=== PATIENT | female | born 1970 | race Caucasian/White ===

== ENCOUNTER 2016-09-18 21:24 | Emergency (ER) | payer OTHER ==
[~2016-09-18] VITALS: Ht 165.1 cm; Wt 66.0 kg
[~2016-09-18 21:24] MED LIST: ALBU8.5H3 INH; ALPR1TAB6 PO; AMIT100T PO; BUDE10.2 INH; CETI10TA24 PO; CHOL100015 PO; CIPR500T3 PO; CLIN-60 PO; COLE1TAB2 PO; COLE625T2 PO; DIPH1TAB6 PO; FENO145T13 PO; FLUC200T4 PO; FLUO40CA2 PO; GABA100C8 PO; GABA300C10 PO; HYOS0.375 PO; IRBE1TAB37 PO; L-NO1TBD3 PO; L-NO1TBD4 PO; MELO-184 PO; METH750T2 PO; METR500T4 PO; OLME1TAB PO; PRED10TA PO; VALA500T PO; ZONI100C2 PO
[2016-09-18] MEDS ORDERED: METOCLOPRAMIDE 5 MG/ML, 2ML IVPush ONE (21:30)
[2016-09-18] MEDS ORDERED: ONDANSETRON 2MG/ML, 2ML IVPush ONE (21:30)
[2016-09-18] MEDS ORDERED: DIPHENHYDRAMINE 50 MG/ML, 1ML IVPush ONE (21:30)
[2016-09-18] MEDS ORDERED: SODIUM CHLORIDE 0.9% 1,000ML IVBOLUS ONE (21:30)
[2016-09-18] MEDS ORDERED: MORPHINE SULFATE 4 MG/ML, 1ML IVPush PRN (21:30)
[2016-09-18] MEDS ORDERED: ONDANSETRON 2MG/ML, 2ML ONE (21:35)
[2016-09-18] MEDS ORDERED: MORPHINE SULFATE 4 MG/ML, 1ML ONE (21:35)
[2016-09-18] MEDS ORDERED: METOCLOPRAMIDE 5 MG/ML, 2ML ONE (21:35)
[2016-09-18] MEDS ORDERED: DIPHENHYDRAMINE 50 MG/ML, 1ML ONE (21:35)
[2016-09-18 21:56] LABS: ASPARTATE AMINO TRANSFERASE 18 U/L (15-37); BLOOD UREA NITROGEN 16 mg/dL (7-18)
[2016-09-18 22:24] LABS: DAU SCREEN DISCLAIMER
[2016-09-18] MEDS ORDERED: ASPIRIN 325 MG TABLET PO ONE (22:30)
[2016-09-18] MEDS ORDERED: ASPIRIN 325 MG TABLET ONE (23:07)
[2016-09-18] MEDS ORDERED: OMNIPAQUE 350 MG/ML, 100ML BOTTLE ONE (23:45)
[2016-09-19] MEDS ORDERED: DEXAMETHASONE 4 MG/ML, 1ML ONE (00:10)
[2016-09-19 00:19] VITALS: BP 108/84
[2016-09-19] MEDS ORDERED: DEXAMETHASONE 4 MG/ML, 1ML IVPush ONE (00:30)
== END 2016-09-19 01:12 | disposition home or self-care (01) ==
LOC: ED 21:47
DX: G43.909 Migraine, unspecified, not intractable, without status migrainosus (principal); I10 Essential (primary) hypertension; J45.909 Unspecified asthma, uncomplicated; E78.5 Hyperlipidemia, unspecified; M54.2 Cervicalgia; G89.29 Other chronic pain
CPT/HCPCS: 36415; 70450; 70496; 70498; 71010; 80053; 80307; 85025; 93005; J1100; J1200; J2405; J2765; J7030; Q9967; 96361; 96374; 96375

== ENCOUNTER 2016-10-23 23:01 | Inpatient (IN) | payer OTHER ==
[~2016-10-23] VITALS: Ht 165.1 cm; Wt 69.0 kg
[~2016-10-23 23:01] MED LIST changes: +GABA-826 PO; -GABA100C8 PO
[2016-10-23] MEDS ORDERED: TRAM50TA2 PO (23:15)
[2016-10-23] MEDS ORDERED: PROCHLORPERAZINE 5 MG/ML, 2ML ONE (23:43)
[2016-10-23] MEDS ORDERED: DIPHENHYDRAMINE 50 MG/ML, 1ML ONE (23:43)
[2016-10-24] MEDS ORDERED: DIPHENHYDRAMINE 50 MG/ML, 1ML IVPush ONE
[2016-10-24] MEDS ORDERED: SODIUM CHLORIDE 0.9% 1,000ML IVBOLUS ONE
[2016-10-24] MEDS ORDERED: PROCHLORPERAZINE 5 MG/ML, 2ML IVPush ONE
[2016-10-24] MEDS ORDERED: KETOROLAC 30 MG/1 ML IVPush ONE (00:30)
[2016-10-24] MEDS ORDERED: KETOROLAC 30 MG/1 ML ONE (01:03)
[2016-10-24 02:07] VITALS: BP 157/98
[2016-10-24] MEDS: OXYcodone/APAP 5/325MG TABLET PO PRN ×3 (03:05→20:00)
[2016-10-24] MEDS ORDERED: morphine SULFATE 10 MG/ML, 1ML IVPush PRN (03:30)
[2016-10-24] MEDS ORDERED: PROMETHAZINE 25 MG/ML, 1ML IM PRN (03:30)
[2016-10-24] MEDS ORDERED: ACETAMINOPHEN 325 MG TABLET PO PRN (03:30)
[2016-10-24] MEDS ORDERED: LABETALOL 5MG/ML, 20ML IVPush PRN (03:30)
[2016-10-24] MEDS ORDERED: DOCUSATE 100 MG CAPSULE PO PRN (03:30)
[2016-10-24] MEDS: NICOTINE 14MG/24 HR PATCH.TD24 TD SCH (05:48)
[2016-10-24] MEDS: ASPIRIN 325 MG TABLET EC PO SCH (05:48)
[2016-10-24] MEDS: ENOXAPARIN 40 MG/0.4 ML SQ SCH (05:48)
[2016-10-24 07:26] VITALS: BP 115/79
[2016-10-24] MEDS: CETIRIZINE 10 MG TABLET PO SCH (10:09)
[2016-10-24] MEDS: FAMOTIDINE 20 MG TABLET PO SCH ×2 (10:10→21:09)
[2016-10-24] MEDS: COLESTIPOL 1 GM TABLET PO SCH ×2 (10:10→21:08)
[2016-10-24] MEDS: IRBESARTAN 150 MG TABLET PO SCH (10:10)
[2016-10-24] MEDS: FLUOXETINE 20 MG CAPSULE PO SCH (10:10)
[2016-10-24] MEDS: SODIUM CHLORIDE FLUSH 10ML SYR IVF SCH ×2 (10:11→21:08)
[2016-10-24] MEDS: HYDROCHLOROTHIAZIDE 12.5 MG CAPSULE PO SCH (10:11)
[2016-10-24] MEDS ORDERED: METHOCARBAMOL 750 MG TABLET PO ONE (11:00)
[2016-10-24 12:55] VITALS: BP 107/74
[2016-10-24] MEDS: KETOROLAC 30 MG/1 ML IVPush SCH ×3 (14:38→21:37)
[2016-10-24] MEDS: ONDANSETRON 2MG/ML, 2ML IVPush PRN ×2 (14:38→21:08)
[2016-10-24] MEDS: DIPHENHYDRAMINE 50 MG/ML, 1ML IVPush PRN ×2 (14:39→21:07)
[2016-10-24] MEDS: VALPROATE SODIUM 500 MG in SODIUM CHLORIDE 0.9% 100 ML IV SCH ×2 (16:34→21:08)
[2016-10-24 20:04] VITALS: BP 109/76
[2016-10-24] MEDS: FENOFIBRATE 145 MG TABLET PO SCH (21:09)
[2016-10-24] MEDS: METHOCARBAMOL 750 MG TABLET PO PRN (22:33)
[2016-10-25 03:17] VITALS: BP 112/76
[2016-10-25] MEDS: VALPROATE SODIUM 500 MG in SODIUM CHLORIDE 0.9% 100 ML IV SCH ×4 (03:20→21:01)
[2016-10-25] MEDS: KETOROLAC 30 MG/1 ML IVPush SCH ×4 (03:22→21:00)
[2016-10-25] MEDS: ONDANSETRON 2MG/ML, 2ML IVPush PRN ×3 (03:22→21:03)
[2016-10-25] MEDS: DIPHENHYDRAMINE 50 MG/ML, 1ML IVPush PRN ×4 (03:22→21:02)
[2016-10-25 04:47] LABS: BLOOD UREA NITROGEN 30 mg/dL (7-18)
[2016-10-25] MEDS: NICOTINE 14MG/24 HR PATCH.TD24 TD SCH (05:36)
[2016-10-25] MEDS: ASPIRIN 325 MG TABLET EC PO SCH (05:36)
[2016-10-25] MEDS: ENOXAPARIN 40 MG/0.4 ML SQ SCH (05:36)
[2016-10-25 07:05] VITALS: BP 115/79
[2016-10-25] MEDS: SODIUM CHLORIDE FLUSH 10ML SYR IVF SCH ×2 (08:37→21:01)
[2016-10-25] MEDS: COLESTIPOL 1 GM TABLET PO SCH ×2 (08:39→21:01)
[2016-10-25] MEDS: IRBESARTAN 150 MG TABLET PO SCH (08:39)
[2016-10-25] MEDS: HYDROCHLOROTHIAZIDE 12.5 MG CAPSULE PO SCH (08:39)
[2016-10-25] MEDS: FLUOXETINE 20 MG CAPSULE PO SCH (08:40)
[2016-10-25] MEDS: CETIRIZINE 10 MG TABLET PO SCH (08:40)
[2016-10-25] MEDS: FAMOTIDINE 20 MG TABLET PO SCH ×2 (08:40→21:02)
[2016-10-25] MEDS ORDERED: SODIUM CHLORIDE 0.9% 1,000 ML IV SCH (10:30)
[2016-10-25 13:20] VITALS: BP 102/69
[2016-10-25] MEDS ORDERED: PROCHLORPERAZINE 5 MG/ML, 2ML IVPush ONE (14:00)
[2016-10-25] MEDS ORDERED: DIPHENHYDRAMINE 50 MG/ML, 1ML IVPush ONE (14:00)
[2016-10-25 19:06] VITALS: BP 116/81
[2016-10-25] MEDS: OXYcodone/APAP 5/325MG TABLET PO PRN (20:03)
[2016-10-25] MEDS: FENOFIBRATE 145 MG TABLET PO SCH (21:02)
[2016-10-25] MEDS: METHOCARBAMOL 750 MG TABLET PO PRN (22:18)
[2016-10-26 01:29] VITALS: BP 118/79
[2016-10-26] MEDS: VALPROATE SODIUM 500 MG in SODIUM CHLORIDE 0.9% 100 ML IV SCH ×4 (02:46→20:58)
[2016-10-26] MEDS: ONDANSETRON 2MG/ML, 2ML IVPush PRN ×4 (02:47→20:46)
[2016-10-26] MEDS: DIPHENHYDRAMINE 50 MG/ML, 1ML IVPush PRN ×4 (02:48→20:46)
[2016-10-26] MEDS: KETOROLAC 30 MG/1 ML IVPush SCH ×4 (02:48→20:44)
[2016-10-26] MEDS: OXYcodone/APAP 5/325MG TABLET PO PRN ×2 (05:43→22:34)
[2016-10-26] MEDS: ASPIRIN 325 MG TABLET EC PO SCH (05:44)
[2016-10-26] MEDS: NICOTINE 14MG/24 HR PATCH.TD24 TD SCH (05:44)
[2016-10-26] MEDS: ENOXAPARIN 40 MG/0.4 ML SQ SCH (05:44)
[2016-10-26 06:13] LABS: BLOOD UREA NITROGEN 28 mg/dL (7-18)
[2016-10-26 08:33] VITALS: BP 125/90
[2016-10-26] MEDS: SODIUM CHLORIDE FLUSH 10ML SYR IVF SCH ×2 (08:44→20:45)
[2016-10-26] MEDS: CETIRIZINE 10 MG TABLET PO SCH (08:45)
[2016-10-26] MEDS: FLUOXETINE 20 MG CAPSULE PO SCH (08:46)
[2016-10-26] MEDS: HYDROCHLOROTHIAZIDE 12.5 MG CAPSULE PO SCH (08:46)
[2016-10-26] MEDS: FAMOTIDINE 20 MG TABLET PO SCH ×2 (08:46→20:45)
[2016-10-26] MEDS: IRBESARTAN 150 MG TABLET PO SCH (08:47)
[2016-10-26] MEDS: COLESTIPOL 1 GM TABLET PO SCH ×2 (08:47→20:44)
[2016-10-26 13:51] VITALS: BP 116/76
[2016-10-26] MEDS: METHOCARBAMOL 750 MG TABLET PO PRN (14:00)
[2016-10-26 19:28] VITALS: BP 137/85
[2016-10-26] MEDS: FENOFIBRATE 145 MG TABLET PO SCH (20:45)
[2016-10-27] MEDS: VALPROATE SODIUM 500 MG in SODIUM CHLORIDE 0.9% 100 ML IV SCH ×4 (02:40→21:15)
[2016-10-27] MEDS: KETOROLAC 30 MG/1 ML IVPush SCH ×2 (02:40→08:24)
[2016-10-27] MEDS: DIPHENHYDRAMINE 50 MG/ML, 1ML IVPush PRN ×2 (02:40→08:24)
[2016-10-27] MEDS: ONDANSETRON 2MG/ML, 2ML IVPush PRN ×2 (02:41→08:24)
[2016-10-27 02:51] VITALS: BP 138/89
[2016-10-27] MEDS: METHOCARBAMOL 750 MG TABLET PO PRN ×2 (05:58→21:14)
[2016-10-27] MEDS: ASPIRIN 325 MG TABLET EC PO SCH (05:59)
[2016-10-27] MEDS: ENOXAPARIN 40 MG/0.4 ML SQ SCH (05:59)
[2016-10-27] MEDS: NICOTINE 14MG/24 HR PATCH.TD24 TD SCH (06:00)
[2016-10-27 08:01] VITALS: BP 131/87
[2016-10-27] MEDS: HYDROCHLOROTHIAZIDE 12.5 MG CAPSULE PO SCH (08:25)
[2016-10-27] MEDS: COLESTIPOL 1 GM TABLET PO SCH ×2 (08:26→21:00)
[2016-10-27] MEDS: FLUOXETINE 20 MG CAPSULE PO SCH (08:26)
[2016-10-27] MEDS: FAMOTIDINE 20 MG TABLET PO SCH ×2 (08:26→21:14)
[2016-10-27] MEDS: CETIRIZINE 10 MG TABLET PO SCH (08:26)
[2016-10-27] MEDS: IRBESARTAN 150 MG TABLET PO SCH (08:27)
[2016-10-27] MEDS: SODIUM CHLORIDE FLUSH 10ML SYR IVF SCH ×2 (08:28→21:15)
[2016-10-27] MEDS ORDERED: MAGNESIUM CITRATE 300ML ORAL SOL PO ONE (10:30)
[2016-10-27] MEDS: ONDANSETRON 2MG/ML, 2ML IVPush SCH ×2 (11:42→18:19)
[2016-10-27] MEDS: DIHYDROERGOTAMINE 1 MG/ML, 1ML IM SCH ×2 (11:43→18:19)
[2016-10-27 14:56] VITALS: BP 134/89
[2016-10-27] MEDS: FENOFIBRATE 145 MG TABLET PO SCH (21:14)
[2016-10-27 21:38] VITALS: BP 110/80
[2016-10-28 01:17] VITALS: BP 105/75
[2016-10-28] MEDS: OXYcodone/APAP 5/325MG TABLET PO PRN (01:31)
[2016-10-28] MEDS: ONDANSETRON 2MG/ML, 2ML IVPush SCH (02:43)
[2016-10-28] MEDS: DIHYDROERGOTAMINE 1 MG/ML, 1ML IM SCH (02:45)
[2016-10-28] MEDS: VALPROATE SODIUM 500 MG in SODIUM CHLORIDE 0.9% 100 ML IV SCH ×2 (03:37→09:10)
[2016-10-28] MEDS: ENOXAPARIN 40 MG/0.4 ML SQ SCH (05:57)
[2016-10-28] MEDS: ASPIRIN 325 MG TABLET EC PO SCH (05:58)
[2016-10-28] MEDS: NICOTINE 14MG/24 HR PATCH.TD24 TD SCH (05:58)
[2016-10-28] MEDS: CETIRIZINE 10 MG TABLET PO SCH (08:09)
[2016-10-28] MEDS: FAMOTIDINE 20 MG TABLET PO SCH (08:09)
[2016-10-28] MEDS: FLUOXETINE 20 MG CAPSULE PO SCH (08:09)
[2016-10-28] MEDS: HYDROCHLOROTHIAZIDE 12.5 MG CAPSULE PO SCH (08:09)
[2016-10-28] MEDS: IRBESARTAN 150 MG TABLET PO SCH (08:09)
[2016-10-28] MEDS: SODIUM CHLORIDE FLUSH 10ML SYR IVF SCH (08:10)
[2016-10-28] MEDS: COLESTIPOL 1 GM TABLET PO SCH (08:10)
[2016-10-28 08:35] VITALS: BP 109/78
[2016-10-28] MEDS ORDERED: DIVA500T2 PO (11:05)
== END 2016-10-28 13:30 | disposition home or self-care (01) | DRG 103 ==
LOC: ED 23:59 → EDIP 10-24 00:29 → INTOOBSV 10-24 00:29 → 4WST 10-24 02:04 → OBSVTOIN 10-24 14:20 → DCLOUNGE 10-28 13:15
PROVIDERS: ADMIT Internal Medicine; ATTEND Internal Medicine
DX: G43.101 Migraine with aura, not intractable, with status migrainosus (principal); G89.4 Chronic pain syndrome; D72.829 Elevated white blood cell count, unspecified; I10 Essential (primary) hypertension; E78.5 Hyperlipidemia, unspecified; F32.9 Major depressive disorder, single episode, unspecified; F41.9 Anxiety disorder, unspecified; F17.210 Nicotine dependence, cigarettes, uncomplicated; M50.30 Other cervical disc degeneration, unspecified cervical region; Z82.49 Family history of ischemic heart disease and other diseases of the circulatory system; Z71.6 Tobacco abuse counseling; Z79.899 Other long term (current) drug therapy
CPT/HCPCS: 36415; 70450; 71010; 80047; 80048; 80061; 81001; 85025; 85610; 85730; 87086; 93005; 93306; G0378; J1650; J1885; J2405; J0780; J1110; J1200; J7030

== ENCOUNTER 2016-12-29 18:59 | Emergency (ER) | payer OTHER ==
[~2016-12-29] VITALS: Ht 165.1 cm; Wt 66.0 kg
[~2016-12-29 18:59] MED LIST changes: -ALBU8.5H3 INH; +ALBU8.5H8 INH; -CLIN-60 PO; +CLIN150C14 PO; +COLE625T12 PO; -COLE625T2 PO; +DIVA500T2 PO; -MELO-184 PO; +MELO15TA24 PO; -METR500T4 PO; +METR500T8 PO; -OLME1TAB PO; +OLME1TAB22 PO; +TRAM50TA2 PO
[2016-12-29] MEDS ORDERED: SODIUM CHLORIDE FLUSH 10ML SYR IVF ONE (20:30)
[2016-12-29] MEDS ORDERED: KETOROLAC 30 MG/1 ML IVPush ONE (20:30)
[2016-12-29] MEDS ORDERED: DEXAMETHASONE 4 MG/ML, 1ML IVPush ONE (20:30)
[2016-12-29] MEDS ORDERED: DIPHENHYDRAMINE 50 MG/ML, 1ML IVPush ONE (20:30)
[2016-12-29] MEDS ORDERED: METOCLOPRAMIDE 5 MG/ML, 2ML IVPush ONE (20:30)
[2016-12-29] MEDS ORDERED: SODIUM CHLORIDE 0.9% 1,000ML IVBOLUS ONE (20:30)
[2016-12-29] MEDS ORDERED: DIPHENHYDRAMINE 50 MG/ML, 1ML ONE (21:07)
[2016-12-29] MEDS ORDERED: DEXAMETHASONE 4 MG/ML, 5ML ONE (21:07)
[2016-12-29] MEDS ORDERED: METOCLOPRAMIDE 5 MG/ML, 2ML ONE (21:07)
[2016-12-29] MEDS ORDERED: KETOROLAC 30 MG/1 ML ONE (21:07)
[2016-12-29] MEDS ORDERED: GABA300C10 PO (21:34)
[2016-12-29] MEDS ORDERED: DIVA-68 PO (21:34)
[2016-12-29 22:48] VITALS: BP 108/72
== END 2016-12-29 22:54 | disposition home or self-care (01) ==
LOC: ED 22:48
DX: G43.909 Migraine, unspecified, not intractable, without status migrainosus (principal); J45.909 Unspecified asthma, uncomplicated; J98.01 Acute bronchospasm; I10 Essential (primary) hypertension; E78.5 Hyperlipidemia, unspecified; G89.29 Other chronic pain; Z90.49 Acquired absence of other specified parts of digestive tract
CPT/HCPCS: 96361; 96374; 96375; 99285; J1100; J1200; J1885; J2765; J7030

== ENCOUNTER → 2017-08-25 | Outpatient (CLI) | payer OTHER ==
[~2017-08-25] MED LIST changes: +DIVA-68 PO; -FENO145T13 PO; +FENO145T30 PO; +GADOBUTROL 7.5 MMOL/7.5 ML PFS ONE
== END | disposition home or self-care (01) ==
LOC: CFH 15:18
PROVIDERS: ATTEND Registered Nurse
DX: I67.82 Cerebral ischemia (principal); R90.82 White matter disease, unspecified; J32.9 Chronic sinusitis, unspecified; G43.719 Chronic migraine without aura, intractable, without status migrainosus
CPT/HCPCS: 70553; 82565; A9585

== ENCOUNTER 2019-06-28 23:42 | Inpatient (IN) | payer OTHER ==
[~2019-06-28] VITALS: Ht 165.1 cm; Wt 64.0 kg
[~2019-06-28 23:42] MED LIST changes: -CETI10TA24 PO; +CETI10TA26 PO; +DIVA-61 PO; -DIVA-68 PO; +FENO145T19 PO; -FENO145T30 PO; -GADOBUTROL 7.5 MMOL/7.5 ML PFS ONE; +METR-90 PO; -METR500T8 PO; -VALA500T PO; +VALA500T8 PO; -ZONI100C2 PO; +ZONI100C29 PO
[2019-06-29] MEDS ORDERED: SODIUM CHLORIDE 0.9% 1,000ML IVBOLUS ONE
[2019-06-29 00:27] LABS: BASOPHILS # (AUTO) 0.08 x10^3/uL (0-0.1); BASOPHILS % (AUTO) 1 % (0-1); EOSINOPHILS # (AUTO) 1.35 x10^3/uL (0-0.4); EOSINOPHILS % (AUTO) 10 % (1-7); LYMPHOCYTES # (AUTO) 4.22 x10^3/uL (1-3.4); LYMPHOCYTES % (AUTO) 31 % (22-44); MD NO; MEAN CORPUSCULAR HEMOGLOBIN 30.5 pg (27.0-34.8); MEAN CORPUSCULAR HGB CONC 33.1 g/dL (32.4-35.8); MEAN CORPUSCULAR VOLUME 92.2 fL (80-100); MEAN PLATELET VOLUME 8.3 fL (7.4-10.4); MONOCYTES # (AUTO) 0.88 x10^3/uL (0.2-0.8); MONOCYTES % (AUTO) 6 % (2-9); NEUTROPHILS # (AUTO) 7.28 x10^3/uL (1.8-6.8); NEUTROPHILS % (AUTO) 53 % (42-75); PLATELET COUNT 351 x10^3/uL (130-400); RED BLOOD COUNT 4.83 x10^6/uL (3.82-5.3)
--- NOTE | 2019-06-29 00:30 | NUR ---
THIS IS A 48 YO F W/ C/O NECK AND HEAD PAIN 8/10 POST FALL. FAMILY REPORTS PT TOOK XANAX AND MARIJUANA PRIOR TO HER FALL. HX: CHRONIC MIGRAINES, NECK PAIN, TIA. PT IS A&OX4. EASILY AROUSED AND ANSWERING QUESTIONS APPROPRIATELY. PIV STARTED, LABS DRAWN. FAMILY AT BEDSIDE. CALL LIGHT IN REACH. CONNECTED TO ALL MONITORING. VS STABLE.
[2019-06-29 00:34] LABS: ALANINE AMINOTRANSFERASE 14 U/L (12-78); ALBUMIN 3.4 g/dL (3.4-5.0); ANION GAP 6 mmol/L (5-15); CHLORIDE 110 mmol/L (98-107); CREATININE 0.75 mg/dL (0.55-1.02)
[2019-06-29] MEDS ORDERED: KETOROLAC 30 MG/1 ML ONE (00:34)
[2019-06-29] MEDS ORDERED: METOCLOPRAMIDE 5 MG/ML, 2ML ONE (00:34)
[2019-06-29 00:38] LABS: ALKALINE PHOSPHATASE 78 U/L (45-117); BILIRUBIN,TOTAL 0.3 mg/dL (0.2-1.0); TOTAL PROTEIN 6.5 g/dL (6.4-8.2)
--- NOTE | 2019-06-29 00:39 | NUR ---
PT MEDICATED PER EMAR.
[2019-06-29] MEDS ORDERED: KETOROLAC 30 MG/1 ML IVPush ONE (01:00)
[2019-06-29] MEDS ORDERED: SODIUM CHLORIDE FLUSH 10ML SYR IVF ONE (01:00)
[2019-06-29] MEDS ORDERED: METOCLOPRAMIDE 5 MG/ML, 2ML IVPush ONE (01:00)
[2019-06-29] MEDS ORDERED: CEFTRIAXONE PMX 1GM/50ML 50 ML ONE (04:13)
--- NOTE | 2019-06-29 04:30 | NUR ---
PT RESTING WITH EYES CLOSED. MONITOR IN PLACE. FAMILY AT BEDSIDE.
[2019-06-29 04:36] LABS: MICROSCOPIC INDICATED
[2019-06-29 04:38] LABS: CULTURE INDICATED? NO
[2019-06-29 04:46] LABS: AMPHETAMINE SCREEN, URINE Negative (Negative); BARBITURATE SCREEN, URINE Negative (Negative); BENZODIAZEPINE SCREEN, URINE Positive (Negative); CANNABINOID SCREEN, URINE Positive (Negative); COCAINE SCREEN, URINE Negative (Negative); METHADONE SCREEN, URINE Negative (Negative); OPIATE SCREEN, URINE Negative (Negative)
--- NOTE | 2019-06-29 05:24 | NUR ---
PT RESTING WITH EYES CLOSED. FAMILY AT BEDSIDE. MONITOR IN PLACE.
--- NOTE | 2019-06-29 05:46 | NUR ---
Patient's written orders by Dr. Waite ordered. Medications tubed to pharmacy and confirmed received by Vimal. Unable to order Folic Acid level and Homocysteine as they state "no longer able to order for inpatient lab since April 2018."
[2019-06-29] MEDS ORDERED: ONDANSETRON 2MG/ML, 2ML IV PRN (06:00)
[2019-06-29] MEDS ORDERED: hydrALAzine 20 MG/ML, 1ML IV PRN (06:00)
[2019-06-29 06:08] LABS: ANION GAP 7 mmol/L (5-15); BASOPHILS % (AUTO) 1 % (0-1); CALCIUM 8.2 mg/dL (8.5-10.1); CHLORIDE 112 mmol/L (98-107); CHOLESTEROL, TOTAL 179 mg/dL (140-239); CREATININE 0.66 mg/dL (0.55-1.02); EOSINOPHILS # (AUTO) 1.61 x10^3/uL (0-0.4); EOSINOPHILS % (AUTO) 13 % (1-7); LYMPHOCYTES # (AUTO) 4.07 x10^3/uL (1-3.4); LYMPHOCYTES % (AUTO) 33 % (22-44); MD NO; MEAN CORPUSCULAR HEMOGLOBIN 30.5 pg (27.0-34.8); MEAN CORPUSCULAR HGB CONC 32.9 g/dL (32.4-35.8); MEAN CORPUSCULAR VOLUME 92.8 fL (80-100); MEAN PLATELET VOLUME 8.5 fL (7.4-10.4); MONOCYTES # (AUTO) 0.82 x10^3/uL (0.2-0.8); MONOCYTES % (AUTO) 7 % (2-9); NEUTROPHILS # (AUTO) 5.64 x10^3/uL (1.8-6.8); NEUTROPHILS % (AUTO) 46 % (42-75); PLATELET COUNT 322 x10^3/uL (130-400); RED BLOOD COUNT 4.53 x10^6/uL (3.82-5.3); RED CELL DISTRIBUTION WIDTH 14.2 % (9.6-15.2); TRIGLYCERIDES 143 mg/dL (50-200); VLDL CHOLESTEROL 29 mg/dL (0-25)
--- NOTE | 2019-06-29 06:19 | NUR ---
SAFETY LEADER: HOSPITAL BED REQUESTED FOR PT. PT. TO BE HOLD IN ED. [facility]IO SAYS THEY WILL BRING ONE DOWN SOON SOMEONE IS AVAILABLE.
[2019-06-29] MEDS ORDERED: MORPHINE SULFATE 4 MG/ML, 1ML ONE ×3 (06:27→10:43)
[2019-06-29] MEDS ORDERED: ENOXAPARIN 40 MG/0.4 ML ONE (06:27)
--- NOTE | 2019-06-29 06:30 | NUR ---
PT MEDICATED PER JUN FOR PAIN. IV UNHOOKED FOR MRI.
[2019-06-29] MEDS: ENOXAPARIN 40 MG/0.4 ML SQ SCH (06:32)
[2019-06-29] MEDS: MORPHINE SULFATE 4 MG/ML, 1ML IV PRN ×4 (06:32→21:01)
[2019-06-29 06:34] LABS: CHOL/HDL RATIO 4.3; HDL CHOL % 23 % (28-40); HDL CHOLESTEROL (DIRECT) 42 mg/dL (40-60); LDL CHOLESTEROL,CALCULATED 108 mg/dL (54-169); LDL/HDL RATIO 2.6 (0.5-3.0)
--- NOTE | 2019-06-29 07:00 | NUR ---
See downtime paperwork for charting for previous shift's charting.
--- NOTE | 2019-06-29 07:05 | NUR ---
Report receive from David RN, pt care assumed at this time. NAD, call light within reach, denies additional needs, even and unlabored respirations noted, [facility].
--- NOTE | 2019-06-29 07:42 | NUR ---
Pt returned from MRI and began experiencing severe 10/10 umbilical abd pain which radiates up to her chest w/ vomitting, EKG obtained & MD Waite called & informed of pt's change in condition. Pt in bed on monitors, pt's family at bedside, see MAR for interventions. WCTM.
[2019-06-29] MEDS ORDERED: ONDANSETRON 2MG/ML, 2ML ONE (07:58)
[2019-06-29] MEDS ORDERED: FAMOTIDINE 20 MG TABLET ONE (07:59)
[2019-06-29] MEDS ORDERED: ASPIRIN 325 MG TABLET ONE (07:59)
[2019-06-29] MEDS ORDERED: MORPHINE SULFATE 4 MG/ML, 1ML IVPush ONE (08:00)
[2019-06-29] MEDS: FAMOTIDINE 20 MG TABLET PO SCH (08:41)
[2019-06-29] MEDS: ASPIRIN 325 MG TABLET PO SCH (08:41)
[2019-06-29] MEDS ORDERED: FLUT1BLS INH (08:45)
[2019-06-29] MEDS ORDERED: EREN70AU2 SC (08:52)
--- NOTE | 2019-06-29 08:54 | NUR ---
Pt moved to hospital bed, breakfast tray ordered, pt to Xray in NAD at this time.
--- NOTE | 2019-06-29 10:43 | NUR ---
PT LAYING IN BED, RESPIRATIONS EVEN AND UNLABORED, NO SIGNS OF DISTRESS, LIGHTS OFF TO PROMOTE REST, SIGNIFICANT OTHER AT BEDSIDE.
--- NOTE | 2019-06-29 11:30 | NUR ---
PT LAYING IN BED, CONDITION UNCHANGED, WILL CONTINUE TO MONITOR, CALL LIGHT WITHIN REACH.
--- NOTE | 2019-06-29 12:34 | NUR ---
REPORT GIVEN TO GUZMAN PEREZ.
[2019-06-29 13:12] VITALS: BP 121/84
[2019-06-29] MEDS: CEFTRIAXONE PMX 1GM/50ML 50 ML IV SCH (16:18)
[2019-06-29] MEDS ORDERED: SUMATRIPTAN 6MG/0.5ML SQ PRN (16:30)
[2019-06-29] MEDS ORDERED: BUTALB/APAP/CAFFEINE 50MG/325MG/40MG PO PRN (16:30)
[2019-06-29] MEDS ORDERED: OMNIPAQUE 350 MG/ML, 100ML BOTTLE ONE (17:56)
[2019-06-29 19:23] VITALS: BP 142/94
[2019-06-29] MEDS ORDERED: NICOTINE 21 MG/24 HR PATCH.TD24 TD ONE (20:00)
[2019-06-29] MEDS: SIMVASTATIN 40 MG TABLET PO SCH (20:35)
[2019-06-30 00:35] VITALS: BP 128/88
[2019-06-30] MEDS: CEFTRIAXONE PMX 1GM/50ML 50 ML IV SCH ×2 (04:09→16:05)
[2019-06-30 06:14] LABS: BASOPHILS # (AUTO) 0.08 x10^3/uL (0-0.1); BASOPHILS % (AUTO) 1 % (0-1); EOSINOPHILS # (AUTO) 1.25 x10^3/uL (0-0.4); EOSINOPHILS % (AUTO) 10 % (1-7); LYMPHOCYTES % (AUTO) 23 % (22-44); MD NO; MEAN CORPUSCULAR HEMOGLOBIN 30.5 pg (27.0-34.8); MEAN CORPUSCULAR HGB CONC 32.8 g/dL (32.4-35.8); MEAN CORPUSCULAR VOLUME 92.9 fL (80-100); MEAN PLATELET VOLUME 8.9 fL (7.4-10.4); MONOCYTES # (AUTO) 0.73 x10^3/uL (0.2-0.8); MONOCYTES % (AUTO) 6 % (2-9); NEUTROPHILS # (AUTO) 7.78 x10^3/uL (1.8-6.8); NEUTROPHILS % (AUTO) 61 % (42-75); PLATELET COUNT 321 x10^3/uL (130-400); RED CELL DISTRIBUTION WIDTH 13.8 % (9.6-15.2)
[2019-06-30 06:26] LABS: ANION GAP 6 mmol/L (5-15); CALCIUM 8.7 mg/dL (8.5-10.1); CHLORIDE 109 mmol/L (98-107)
[2019-06-30 06:28] LABS: C-REACTIVE PROTEIN, QUANT 0.25 mg/dL (0.02-0.49); CREATININE 0.72 mg/dL (0.55-1.02)
[2019-06-30] MEDS: ENOXAPARIN 40 MG/0.4 ML SQ SCH (07:38)
[2019-06-30 08:19] VITALS: BP 123/84
[2019-06-30] MEDS: TOPIRAMATE 25 MG TABLET PO SCH (10:02)
[2019-06-30] MEDS: FAMOTIDINE 20 MG TABLET PO SCH (10:02)
[2019-06-30] MEDS: ASPIRIN 325 MG TABLET PO SCH (10:02)
[2019-06-30 13:40] VITALS: BP 118/83
[2019-06-30 18:58] LABS: MICROSCOPIC AUTO
[2019-06-30 19:31] LABS: CULTURE INDICATED? NO
[2019-06-30 20:16] VITALS: BP 117/82
[2019-06-30] MEDS: SIMVASTATIN 40 MG TABLET PO SCH (20:18)
[2019-06-30] MEDS ORDERED: NICOTINE 21 MG/24 HR PATCH.TD24 TD SCH (20:30)
[2019-06-30] MEDS ORDERED: AIMOVIG SC ONE (22:30)
[2019-06-30] MEDS ORDERED: [UNRECOGNIZED DRUG - OTHER] SC ONE (22:30)
[2019-07-01 01:29] VITALS: BP 135/90
[2019-07-01] MEDS: MORPHINE SULFATE 4 MG/ML, 1ML IV PRN (02:58)
[2019-07-01] MEDS: CEFTRIAXONE PMX 1GM/50ML 50 ML IV SCH (04:18)
[2019-07-01] MEDS: ENOXAPARIN 40 MG/0.4 ML SQ SCH (05:35)
[2019-07-01 07:27] VITALS: BP 107/70
[2019-07-01] MEDS ORDERED: MAGNESIUM HYDROXIDE 8%, 30ML UDC PO PRN (09:00)
[2019-07-01] MEDS: ASPIRIN 325 MG TABLET PO SCH (09:29)
[2019-07-01] MEDS: FAMOTIDINE 20 MG TABLET PO SCH (09:29)
[2019-07-01] MEDS: TOPIRAMATE 25 MG TABLET PO SCH (09:29)
== END 2019-07-01 13:55 | disposition home or self-care (01) | DRG 91 ==
LOC: ED 06-29 00:27 → EDIP 06-29 05:29 → 5SO 06-29 13:04 → DCLOUNGE 07-01 13:47
PROVIDERS: ADMIT Emergency Medicine; ATTEND Emergency Medicine
DX: G92 Toxic encephalopathy (principal); J15.9 Unspecified bacterial pneumonia; J44.0 Chronic obstructive pulmonary disease with (acute) lower respiratory infection; E78.5 Hyperlipidemia, unspecified; F17.200 Nicotine dependence, unspecified, uncomplicated; F41.1 Generalized anxiety disorder; Z96.641 Presence of right artificial hip joint; G43.909 Migraine, unspecified, not intractable, without status migrainosus; G40.909 Epilepsy, unspecified, not intractable, without status epilepticus; I10 Essential (primary) hypertension; I44.1 Atrioventricular block, second degree; Z82.49 Family history of ischemic heart disease and other diseases of the circulatory system; Z83.3 Family history of diabetes mellitus; Z86.73 Personal history of transient ischemic attack (TIA), and cerebral infarction without residual deficits; Z90.49 Acquired absence of other specified parts of digestive tract
CPT/HCPCS: 36415; 70450; 70551; 71045; 72110; 72125; 74160; 74230; 76700; 80048; 80053; 80061; 80164; 80307; 81001; 82607; 83036; 83605; 83690; 84439; 84443; 85025; 86140; 87040; 93005; 93306; 93880; G0378; J0696; J1650; J1885; J2405; Q9967; J2270; J2765; J3030; J7030